=== PATIENT | female | born 2000 | race Caucasian/White ===

== ENCOUNTER 2020-05-08 19:52 | Emergency (ER) | payer SELFPAY ==
[~2020-05-08] VITALS: Ht 165.1 cm; Wt 60.5 kg
[2020-05-08] MEDS ORDERED: LIDOCAINE 1% 10 ML VIAL INJ ONE (23:00)
[2020-05-08] MEDS ORDERED: PERTUSS(ACELL),DIPH,TET VAC/PF 0.5 ML VIAL IM ONE (23:00)
[2020-05-08] MEDS ORDERED: AMOX TR/POT CLAV 875 MG/125 MG TABLET PO ONE (23:00)
[2020-05-09] MEDS ORDERED: POVIDONE-IODINE 10% 15 ML SOLUTION UD ONE (00:10)
[2020-05-09 00:30] VITALS: BP 116/70
[2020-05-09] MEDS ORDERED: BACITRACIN 0.9 GM PACKET OINTMENT TP ONE (00:45)
== END 2020-05-09 00:53 | disposition home or self-care (01) ==
LOC: EMS 19:55
DX: S81.812A Laceration without foreign body, left lower leg, initial encounter (principal); F12.90 Cannabis use, unspecified, uncomplicated; W54.0XXA Bitten by dog, initial encounter; Y93.01 Activity, walking, marching and hiking; Y92.89 Other specified places as the place of occurrence of the external cause; Y99.8 Other external cause status
CPT/HCPCS: 12001; 90471; 90715; 99283; J3490